=== PATIENT | male | born 1985 | race American Indian/Alaskan Native ===

== ENCOUNTER 2023-05-11 16:23 | Inpatient (IN) | payer SELFPAY ==
[2023-05-11] MEDS ORDERED: KETOROLAC TROMETHAMINE 15 MG/ML VIAL IVPUSH ONE (18:21)
[2023-05-11] MEDS ORDERED: KETOROLAC TROMETHAMINE 15 MG/ML VIAL ONE (18:29)
[2023-05-11 18:53] LABS: BASO % 0.3 % (0-2.0); HEMATOCRIT 45.7 % (35.4-49); LYMPH % 12.8 % (8-40); MCHC 32.8 g/dl (32.0-35.9); MEAN CELL VOLUME 88.5 fl (80-96); MEAN PLT VOLUME 8.3 fl (7.5-11.1); MONO % 8.1 % (3.8-10.2); NEUT % 77.8 % (42.8-82.8); PLATELET COUNT 200 10^3/uL (134-434); RBC 5.16 M/mm3 (4.00-5.60); RDW 13.6 % (11.9-15.9); WHITE BLOOD COUNT 10.1 K/mm3 (4.0-10.0)
[2023-05-11 18:56] LABS: EPI CELLS 2 /uL (0-25.1); HYALINE CASTS 1 /uL (0-3.1); URINE APPEARANCE CLEAR; URINE BACTERIA 18 /uL (0-1359); URINE BILIRUBIN NEGATIVE (NEGATIVE); URINE COLOR YELLOW; URINE GLUCOSE (UA) NEGATIVE (NEGATIVE); URINE KETONE NEGATIVE (NEGATIVE); URINE LEUK ESTERASE NEGATIVE (NEGATIVE); URINE NITRITE NEGATIVE (NEGATIVE); URINE PROTEIN NEGATIVE (NEGATIVE); URINE RBC 75 /uL (0-23.9); URINE UROBILINOGEN 0.2 mg/dL (0.2-1.0); URINE WBC 4 /uL (0-25.8)
[2023-05-11 19:00] LABS: INR 1.1 (0.83-1.09); PROTHROMBIN TIME (PATIENT) 12.7 SEC (9.7-13.0)
[2023-05-11 19:03] LABS: ACTIVATED PTT 38.5 SECONDS (25.2-36.5)
[2023-05-11 19:29] LABS: POTASSIUM 3.8 mmol/L (3.5-5.1)
[2023-05-11 19:30] LABS: CALCIUM 9.8 mg/dL (8.5-10.1)
[2023-05-11 19:31] LABS: ALBUMIN 4.2 g/dl (3.4-5.0); BLOOD UREA NITROGEN 10.2 mg/dL (7-18)
[2023-05-11 19:34] LABS: CREATININE 1.5 mg/dL (0.55-1.3)
[2023-05-11 19:36] LABS: BILIRUBIN,TOTAL 0.6 mg/dL (0.2-1)
[2023-05-11] MEDS ORDERED: morphine CARPU-JECT 4 MG/1 ML DISP.SYRIN IVPUSH ONE (22:09)
[2023-05-11] MEDS ORDERED: ONDANSETRON 4 MG/2 ML VIAL IVPUSH ONE (22:09)
[2023-05-11] MEDS ORDERED: morphine SULFATE 4 MG/ML VIAL ONE (22:22)
[2023-05-11] MEDS ORDERED: ONDANSETRON 4 MG/2 ML VIAL ONE (22:22)
[2023-05-12] MEDS: SODIUM CHLORIDE 1,000 ML IV SCH ×2 (00:37→18:14)
[2023-05-12 03:43] VITALS: BMI 21.7
[2023-05-12] MEDS ORDERED: ONDANSETRON 4 MG/2 ML VIAL IVPUSH PRN (04:00)
[2023-05-12] MEDS ORDERED: TAMSULOSIN HCL 0.4 MG CAP PO SCH (08:30)
[2023-05-12 10:19] LABS: BASO % 0.2 % (0-2.0); EOS % 0.7 % (0-4.5); HEMATOCRIT 45.4 % (35.4-49); HEMOGLOBIN 14.9 GM/dL (11.7-16.9); LYMPH % 11.8 % (8-40); MCH 29.5 pg (25.7-33.7); MCHC 32.9 g/dl (32.0-35.9); MEAN CELL VOLUME 89.6 fl (80-96); MEAN PLT VOLUME 8.8 fl (7.5-11.1); MONO % 9.3 % (3.8-10.2); PLATELET COUNT 197 10^3/uL (134-434); RBC 5.07 M/mm3 (4.00-5.60); RDW 13.3 % (11.9-15.9); WHITE BLOOD COUNT 11.6 K/mm3 (4.0-10.0)
[2023-05-12 10:22] LABS: BLOOD UREA NITROGEN 10.1 mg/dL (7-18); CALCIUM 9.6 mg/dL (8.5-10.1); POTASSIUM 4.1 mmol/L (3.5-5.1)
[2023-05-12 10:25] LABS: CREATININE 1.6 mg/dL (0.55-1.3)
[2023-05-13] MEDS: SODIUM CHLORIDE 1,000 ML IV SCH ×3 (04:48→21:02)
[2023-05-13] MEDS ORDERED: PROMETHAZINE HCL 25 MG/1 ML VIAL IVPB PRN ×2 (07:35→08:25)
[2023-05-13] MEDS ORDERED: ONDANSETRON 4 MG/2 ML VIAL IVPUSH PRN ×3 (07:35→08:25)
[2023-05-13] MEDS ORDERED: MIDAZOLAM HCL 2 MG/2 ML SINGLE DOSE VIAL ONE (07:39)
[2023-05-13] MEDS ORDERED: PROPOFOL 20 ML ONE (07:39)
[2023-05-13] MEDS ORDERED: ceFAZolin SODIUM 1 GM VIAL ONE (07:40)
[2023-05-13] MEDS ORDERED: SODIUM CHLORIDE 0.9% P/F 10 ML VIAL IJ ONE (07:40)
[2023-05-13] MEDS ORDERED: LIDOCAINE HCL/PF 2% SDV 5ML VIAL ONE (07:40)
[2023-05-13] MEDS ORDERED: LACTATED RINGERS SOLUTION 1,000 ML IV SCH (07:45)
[2023-05-13] MEDS ORDERED: ceFAZolin SODIUM 1 GM VIAL IVPB ONE (07:46)
[2023-05-13] MEDS ORDERED: DEXAMETHASONE SOD PHOSPHATE 4 MG/1 ML VIAL ONE (07:50)
[2023-05-13] MEDS ORDERED: ONDANSETRON 4 MG/2 ML VIAL ONE (07:50)
[2023-05-13] MEDS ORDERED: KETOROLAC TROMETHAMINE 30 MG/1 ML VIAL ONE (07:54)
[2023-05-13] MEDS: TAMSULOSIN HCL 0.4 MG CAP PO SCH (11:24)
[2023-05-13 12:38] LABS: HEMATOCRIT 43.2 % (35.4-49); HEMOGLOBIN 14.4 GM/dL (11.7-16.9); MCHC 33.3 g/dl (32.0-35.9); MEAN CELL VOLUME 89.9 fl (80-96); MEAN PLT VOLUME 8.7 fl (7.5-11.1); PLATELET COUNT 169 10^3/uL (134-434); RDW 13.1 % (11.9-15.9); WHITE BLOOD COUNT 10.3 K/mm3 (4.0-10.0)
[2023-05-13 13:06] LABS: ANISOCYTOSIS 0; MACROCYTOSIS 0
[2023-05-13 13:11] LABS: POTASSIUM 4.1 mmol/L (3.5-5.1)
[2023-05-13 13:13] LABS: BLOOD UREA NITROGEN 9.1 mg/dL (7-18); CALCIUM 9.1 mg/dL (8.5-10.1)
[2023-05-13 13:16] LABS: CREATININE 1.6 mg/dL (0.55-1.3)
[2023-05-13 13:18] LABS: TOT PROT 6.9 g/dl (6.4-8.2)
[2023-05-13 13:23] LABS: ALBUMIN 3.2 g/dl (3.4-5.0)
[2023-05-13] MEDS: CEFTRIAXONE 1 GM in DEXTROSE 5%-WATER - 50 ML IVPB SCH (20:47)
[2023-05-14] MEDS: TAMSULOSIN HCL 0.4 MG CAP PO SCH (08:35)
[2023-05-14 08:38] VITALS: RESP 18
[2023-05-14] MEDS: SODIUM CHLORIDE 1,000 ML IV SCH ×2 (08:39→18:55)
[2023-05-14 10:38] LABS: POTASSIUM 3.9 mmol/L (3.5-5.1)
[2023-05-14 10:42] LABS: BASO % 0.3 % (0-2.0); EOS % 0.8 % (0-4.5); HEMATOCRIT 42.2 % (35.4-49); HEMOGLOBIN 13.9 GM/dL (11.7-16.9); LYMPH % 17.1 % (8-40); MCH 29.5 pg (25.7-33.7); MCHC 32.9 g/dl (32.0-35.9); MEAN CELL VOLUME 89.7 fl (80-96); MEAN PLT VOLUME 8.9 fl (7.5-11.1); MONO % 10.1 % (3.8-10.2); NEUT % 71.7 % (42.8-82.8); PLATELET COUNT 178 10^3/uL (134-434); RDW 13.4 % (11.9-15.9); WHITE BLOOD COUNT 10.8 K/mm3 (4.0-10.0)
[2023-05-14 10:46] LABS: BLOOD UREA NITROGEN 14.2 mg/dL (7-18); CREATININE 1.2 mg/dL (0.55-1.3)
[2023-05-14 10:48] LABS: BILIRUBIN,TOTAL 0.7 mg/dL (0.2-1); TOT PROT 6.6 g/dl (6.4-8.2)
[2023-05-15] MEDS: TAMSULOSIN HCL 0.4 MG CAP PO SCH (08:23)
[2023-05-15] MEDS: CEFTRIAXONE 1 GM in DEXTROSE 5%-WATER - 50 ML IVPB SCH (10:29)
[2023-05-15] MEDS: SODIUM CHLORIDE 1,000 ML IV SCH ×2 (10:30→23:10)
[2023-05-15 11:07] LABS: POTASSIUM 3.7 mmol/L (3.5-5.1)
[2023-05-15 11:08] LABS: CALCIUM 8.8 mg/dL (8.5-10.1)
[2023-05-15 11:09] LABS: ALBUMIN 3.4 g/dl (3.4-5.0); BLOOD UREA NITROGEN 13.2 mg/dL (7-18)
[2023-05-15 11:12] LABS: CREATININE 1.1 mg/dL (0.55-1.3)
[2023-05-15 11:14] LABS: BILIRUBIN,TOTAL 0.6 mg/dL (0.2-1); TOT PROT 7.1 g/dl (6.4-8.2)
[2023-05-16] MEDS: TAMSULOSIN HCL 0.4 MG CAP PO SCH (09:25)
[2023-05-16] MEDS: CEFTRIAXONE 1 GM in DEXTROSE 5%-WATER - 50 ML IVPB SCH (09:25)
[2023-05-16 09:33] VITALS: BP 133/76; PULSE 79; TEMP 98.4
[2023-05-16] MEDS: SODIUM CHLORIDE 1,000 ML IV SCH (09:49)
== END 2023-05-16 04:30 | disposition home or self-care (01) | DRG 463 ==
LOC: JER 16:23 → JERBED 23:36 → J6S 05-12 03:19
PROVIDERS: ADMIT Internal Medicine; ATTEND Internal Medicine
PROC: 0T768DZ Dilation of Right Ureter with Intraluminal Device, Via Natural or Artificial Opening Endoscopic (ICD-10-PCS; principal; 2023-05-13 07:15)
DX: N13.6 Pyonephrosis (principal); N17.9 Acute kidney failure, unspecified; R31.9 Hematuria, unspecified; D72.829 Elevated white blood cell count, unspecified
CPT/HCPCS: 36415; 74176-TC; 76000-TC-FY; 80048; 80053; 81003; 85025; 85610; 85730; 86850; 86900; 86901; 87086; 94760; 99285-25; C2617

== ENCOUNTER 2023-06-08 04:12 | Day surgery (SDC) | payer BC ==
[2023-05-30 16:57] VITALS: BMI 21.6
[2023-06-08] MEDS ORDERED: MIDAZOLAM HCL 2 MG/2 ML SINGLE DOSE VIAL ONE (14:18)
[2023-06-08] MEDS ORDERED: ceFAZolin SODIUM 1 GM VIAL IVPB ONE (14:35)
[2023-06-08] MEDS ORDERED: oxyCODONE HCL 5 MG TABLET PO PRN (15:07)
[2023-06-08] MEDS ORDERED: LACTATED RINGERS SOLUTION 1,000 ML IV SCH (15:15)
[2023-06-08 16:32] VITALS: RESP 18
[2023-06-08 17:55] VITALS: BP 131/80; PULSE 61; TEMP 97.9
== END 2023-06-08 17:12 | disposition home or self-care (01) ==
LOC: JASU-SURG 04:12
PROVIDERS: ATTEND Urology
PROC: 0TC68ZZ Extirpation of Matter from Right Ureter, Via Natural or Artificial Opening Endoscopic (ICD-10-PCS; principal; 2023-06-08 13:30)
PROC: 0T768DZ Dilation of Right Ureter with Intraluminal Device, Via Natural or Artificial Opening Endoscopic (ICD-10-PCS; 2023-06-08 13:30)
DX: N20.1 Calculus of ureter (principal)
CPT/HCPCS: 76000-TC-FY; 94760; C1758; C2617

== ENCOUNTER 2023-12-07 11:20 | Emergency (ER) | payer BC ==
[2023-12-07 11:27] VITALS: BP 114/75; PULSE 103; RESP 20; TEMP 98.5; BMI 25.0
[2023-12-07] MEDS ORDERED: KETOROLAC TROMETHAMINE 15 MG/ML VIAL ONE (12:11)
[2023-12-07] MEDS ORDERED: ONDANSETRON 4 MG/2 ML VIAL ONE (12:11)
[2023-12-07] MEDS: SODIUM CHLORIDE 1,000 ML IV STA (12:17)
[2023-12-07] MEDS: KETOROLAC TROMETHAMINE 15 MG/ML VIAL IVPUSH ONE (12:17)
[2023-12-07] MEDS: ONDANSETRON 4 MG/2 ML VIAL IVPUSH ONE (12:18)
[2023-12-07 12:26] LABS: BASO % 0.3 % (0-2.0); EOS % 0.6 % (0-4.5); HEMATOCRIT 46.9 % (35.4-49); HEMOGLOBIN 15.6 GM/dL (11.7-16.9); LYMPH % 18.3 % (8-40); MCH 29.8 pg (25.7-33.7); MCHC 33.3 g/dl (32.0-35.9); MEAN CELL VOLUME 89.4 fl (80-96); MEAN PLT VOLUME 8.6 fl (7.5-11.1); MONO % 4.5 % (3.8-10.2); NEUT % 76.3 % (42.8-82.8); PLATELET COUNT 186 10^3/uL (134-434); RBC 5.24 M/mm3 (4.00-5.60); RDW 13.9 % (11.9-15.9); WHITE BLOOD COUNT 10.9 K/mm3 (4.0-10.0)
[2023-12-07 12:47] LABS: POTASSIUM 3.5 mmol/L (3.5-5.1)
[2023-12-07 12:49] LABS: ALBUMIN 4.3 g/dl (3.4-5.0); CALCIUM 9.7 mg/dL (8.5-10.1)
[2023-12-07 12:50] LABS: BLOOD UREA NITROGEN 13.9 mg/dL (7-18)
[2023-12-07 12:52] LABS: CREATININE 1.1 mg/dL (0.55-1.3)
[2023-12-07 12:54] LABS: BILIRUBIN,TOTAL 1.1 mg/dL (0.2-1); TOT PROT 8.1 g/dl (6.4-8.2)
[2023-12-07] MEDS ORDERED: morphine SULFATE 4 MG/ML VIAL ONE (13:45)
[2023-12-07] MEDS: morphine CARPU-JECT 4 MG/1 ML DISP.SYRIN IVPUSH ONE (13:47)
[2023-12-07 13:56] LABS: EPI CELLS 17 /uL (0-25.1); HYALINE CASTS 3 /uL (0-3.1); PH,URINE 5.5 (5.0-8.0); URINE APPEARANCE CLOUDY; URINE BACTERIA 23 /uL (0-1359); URINE BILIRUBIN NEGATIVE (NEGATIVE); URINE COLOR YELLOW; URINE GLUCOSE (UA) NEGATIVE (NEGATIVE); URINE KETONE TRACE (NEGATIVE); URINE LEUK ESTERASE NEGATIVE (NEGATIVE); URINE NITRITE NEGATIVE (NEGATIVE); URINE PROTEIN 1+ (NEGATIVE); URINE RBC 91 /uL (0-23.9); URINE UROBILINOGEN 0.2 mg/dL (0.2-1.0); URINE WBC 28 /uL (0-25.8)
== END 2023-12-07 14:55 | disposition home or self-care (01) ==
LOC: JER 11:20
PROC: 3E033GC Introduction of Other Therapeutic Substance into Peripheral Vein, Percutaneous Approach (ICD-10-PCS; principal; 2023-12-07)
PROC: 3E033NZ Introduction of Analgesics, Hypnotics, Sedatives into Peripheral Vein, Percutaneous Approach (ICD-10-PCS; 2023-12-07)
PROC: 3E0333Z Introduction of Anti-inflammatory into Peripheral Vein, Percutaneous Approach (ICD-10-PCS; 2023-12-07)
PROC: 3E0337Z Introduction of Electrolytic and Water Balance Substance into Peripheral Vein, Percutaneous Approach (ICD-10-PCS; 2023-12-07)
DX: R10.32 Left lower quadrant pain (principal); N13.2 Hydronephrosis with renal and ureteral calculous obstruction
CPT/HCPCS: 36415; 74176-TC; 80053; 81003; 85025; 87086; 99284-25

== ENCOUNTER 2024-11-12 14:32 | Emergency (ER) | payer BC ==
[2024-11-12 15:31] VITALS: BP 125/78; PULSE 88; RESP 18; TEMP 98.3; BMI 20.4
[2024-11-12 17:49] LABS: BG HCT 48.0 % (35.4-49); VENOUS BASE EXCESS 0.6 mmol/L (-2-2); VENOUS O2 SATURATION 28.5 % (70-80); VENOUS PCO2 55.2 mmHg (38-52); VENOUS PH 7.323 (7.310-7.410)
[2024-11-12 17:50] LABS: ABSOLUTE IMMATURE GRANULOCYTES 0.02 x10^3/uL (0.0-0.031); BASOPHILS # 0.03 x10^3/uL (0.01-0.08); EOSINOPHIL % 0.3 % (0.8-7.0); EOSINOPHILS # 0.02 x10^3/uL (0.04-0.54); MCHC 32.8 g/dl (32.3-36.5); MEAN CELL VOLUME 89.4 fl (79.0-92.2); MEAN PLT VOLUME 10.6 fl (9.4-12.4); MONOCYTE # 0.48 x10^3/uL (0.30-0.82); MONOCYTE % 6.0 % (5.3-12.2); RDW 12.8 % (12.1-15.9)
[2024-11-12 18:17] LABS: CO2 29.0 mmol/L (21-32); GLUCOSE,RANDOM 107.0 mg/dL (74-106)
[2024-11-12 18:20] LABS: CREATININE 0.9 mg/dL (0.55-1.3); SGOT/AST 27.0 U/L (15-37); SGPT/ALT 37.0 U/L (13-61)
[2024-11-12 18:21] LABS: TOT PROT 8.1 g/dl (6.4-8.2)
[2024-11-12 18:23] LABS: ALK PHOS 59.0 U/L (45-117)
[2024-11-12 19:10] LABS: HCV DIAGNOSTIC IN-HOUSE W/RFLX NON-REACTIVE (NONREACTIVE)
[2024-11-12 19:11] LABS: HIV INTERPRETATION NEGATIVE (NEGATIVE)
== END 2024-11-12 19:25 | disposition left against medical advice (07) ==
LOC: JERFT 14:32
DX: T59.811A Toxic effect of smoke, accidental (unintentional), initial encounter (principal); W40.8XXA Explosion of other specified explosive materials, initial encounter; Y92.039 Unspecified place in apartment as the place of occurrence of the external cause
CPT/HCPCS: 36415; 71046-TC-FY; 80053; 82375; 82803; 85025; 86803; 87389; 99284-25